=== PATIENT | female | born 1960 | race Caucasian/White ===

== ENCOUNTER 2024-04-24 09:59 | Emergency (ER) | payer OTHER ==
[~2024-04-24] VITALS: Ht 170.2 cm; Wt 70.8 kg
[~2024-04-24 09:59] MED LIST: ASPI-1822 PO; CHOL200047 PO; LEVO0.124 PO; METF-1274 PO; OSC500 PO; SIMV-371 PO
[2024-04-24 10:25] VITALS: BP 139/80; PULSE 72; RESP 16; TEMP 98.4; O2SAT 97
[2024-04-24] MEDS ORDERED: NAPR-1704 PO (12:30)
[2024-04-24 12:50] VITALS: BP 129/61; PULSE 56; RESP 14; O2SAT 97
== END 2024-04-24 12:52 | disposition home or self-care (01) ==
LOC: MED 09:59
DX: S90.01XA Contusion of right ankle, initial encounter (principal); E11.9 Type 2 diabetes mellitus without complications; I10 Essential (primary) hypertension; E78.5 Hyperlipidemia, unspecified; Z86.39 Personal history of other endocrine, nutritional and metabolic disease; Z79.1 Long term (current) use of non-steroidal anti-inflammatories (NSAID); Z79.82 Long term (current) use of aspirin; Z79.84 Long term (current) use of oral hypoglycemic drugs; Z79.899 Other long term (current) drug therapy; X58.XXXA Exposure to other specified factors, initial encounter; Y93.89 Activity, other specified; Y92.89 Other specified places as the place of occurrence of the external cause; Y99.8 Other external cause status
CPT/HCPCS: 73610; 99283